=== PATIENT | female | born 1960 | race Caucasian/White ===

== ENCOUNTER 2020-07-12 15:40 | Outpatient (CLI) | payer OTHER, SELFPAY | END 2020-07-12 15:41 | disposition home or self-care (01) | LOC: ANHCOVIDVC 15:40 | PROVIDERS: PCP Family Medicine | DX: Z23 Encounter for immunization (principal) | CPT/HCPCS: 0001A; 91300 ==

== ENCOUNTER 2020-08-02 15:58 | Outpatient (CLI) | payer OTHER, SELFPAY | END 2020-08-02 15:59 | disposition home or self-care (01) | LOC: ANHCOVIDVC 15:58 | PROVIDERS: PCP Family Medicine | DX: Z23 Encounter for immunization (principal) | CPT/HCPCS: 0002A; 91300 ==

== ENCOUNTER → 2022-12-27 13:15 | Outpatient (CLI) | payer OTHER, SELFPAY ==
--- NOTE | ~2022-12-27 | CT_ITS ---
EXAMINATION: CT sinus wo con DATE: 12/27/2022 13:37 INDICATION: Chronic sinusitis TECHNIQUE: Computed tomography (CT) of the paranasal sinuses was performed without contrast. Iterativ e reconstruction technique was employed. Exam dose: 272.05 mGy-cm total exam DLP. COMPARISON: None FINDINGS: There is rightward bowing of the nasal septum. There is intralamellar cell and jenelle bullosa of both middle nasal turbinates, particularly prominen t on the left. There is prominent soft tissue swelling of the nasal turbinates bilaterally. The ostiomeatal units are patent. There are bilateral Buck cells. 7.5 mm mucous retention cyst or polyp of the inferolateral aspect of the left frontal sinus. There is prominent opacification of multiple posterior left ethmoid air cells. Small mucus retention cyst or focal mucoperiosteal thickening at the inferomedial aspect of the left sphenoid sinus. There are several mucous retention cysts or polyps of the right maxillary sinus measuring between 3 a nd 9 mm dimension. The mastoid air cells are normally developed and aerated bilaterally. Middle and inner ear apparatus appear normal bilaterally. 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 Reviewed, dictated and finalized at location A. 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
== END ==
PROVIDERS: PCP Family Medicine; Visit Provider Otolaryngology
DX: J32.9 Chronic sinusitis, unspecified (principal); J34.2 Deviated nasal septum
CPT/HCPCS: 70486

== ENCOUNTER → 2022-12-27 13:18 | Outpatient (CLI) | payer OTHER, SELFPAY ==
--- NOTE | ~2022-12-27 | XR_ITS ---
EXAMINATION: XR hand LT 2V INDICATION: Left hand pain TECHNIQUE: Two views of the left hand are obtained. COMPARISON: None available FINDINGS: Bone alignment is normal. There is no fracture. There is moderate osteoarthritis at the tri scaphe and first carpometacarpal joints and at the second distal interphalangeal joint. There is mild osteoarthritis of multiple interphalangeal joints. The soft tissues are unremarkable. IMPRESSION: 1. Polyarticular osteoarthritis. Reviewed, dictated and finalized at location F.
--- NOTE | ~2022-12-27 | XR_ITS ---
EXAMINATION: XR foot LT 2V INDICATION: Polyarthralgia TECHNIQUE: Two views of the left foot are obtained. COMPARISON: None available FINDINGS: Bone alignment is normal. There is moderate osteoarthritis at the first metatarsophalangeal joint and in multiple interphalangeal joints. There is no fracture. No erosions are identified. Ther e is a plantar calcaneal enthesophyte. The soft tissues are unremarkable. IMPRESSION: 1. Polyarticular osteoarthritis. Reviewed, dictated and finalized at location F.
--- NOTE | ~2022-12-27 | XR_ITS ---
EXAMINATION: XR_[id number]_CR DATE: 12/27/2022 15:43 INDICATION: Right knee pain TECHNIQUE: Two views of the right knee were obtained. COMPARISON: None. FINDINGS: Alignment is normal. No fracture or osteochondral lesion. There is mild tricompartmental os teoarthritis characterized by tiny marginal osteophytes. No joint effusion/synovitis. Soft tissues a re unremarkable. IMPRESSION: 1. No acute osseous abnormality. Reviewed, dictated and finalized at location F.
--- NOTE | ~2022-12-27 | XR_ITS ---
EXAMINATION: XR hip BI wo pelvis INDICATION: Arthralgia TECHNIQUE: Two views of each hip are obtained. COMPARISON: 12/23/2016 FINDINGS: Bone alignment is normal. There is no fracture. There is mild osteoarthritis of the hips. T he soft tissues are unremarkable. IMPRESSION: 1. Mild osteoarthritis of the hips. Reviewed, dictated and finalized at location F.
--- NOTE | ~2022-12-27 | XR_ITS ---
EXAMINATION: XR_[id number]_CR DATE: 12/27/2022 15:43 INDICATION: Left knee pain TECHNIQUE: Two views of the left knee were obtained. COMPARISON: None. FINDINGS: Alignment is normal. No fracture or osteochondral lesion. There is mild tricompartmental os teoarthritis characterized by tiny marginal osteophytes. No joint effusion/synovitis. Soft tissues a re unremarkable. IMPRESSION: 1. Mild osteoarthritis. Reviewed, dictated and finalized at location F. IMPRESSION: 1. Mild osteoarthritis.
--- NOTE | ~2022-12-27 | XR_ITS ---
EXAMINATION: XR hand RT 2V INDICATION: Arthralgia, hand pain TECHNIQUE: Two views of the right hand are obtained. COMPARISON: None available FINDINGS: Bone alignment is normal. There is no fracture. There is mild osteoarthritis at the triscap he and first carpometacarpal joints as well as multiple interphalangeal joints. The soft tissues are unremarkable. IMPRESSION: 1. Polyarticular osteoarthritis. Reviewed, dictated and finalized at location F.
== END ==
PROVIDERS: PCP Family Medicine; Visit Provider Physician Assistant
DX: M25.50 Pain in unspecified joint (principal); M19.072 Primary osteoarthritis, left ankle and foot; M17.12 Unilateral primary osteoarthritis, left knee; M19.041 Primary osteoarthritis, right hand; M19.042 Primary osteoarthritis, left hand; M16.0 Bilateral primary osteoarthritis of hip
CPT/HCPCS: 73120; 73521; 73560; 73620